=== PATIENT | female | born 1955 | race Caucasian/White ===

== ENCOUNTER 2017-11-09 15:59 | Inpatient (IN) | payer OTHER ==
[~2017-11-09] VITALS: Ht 172.7 cm; Wt 81.3 kg
[2017-11-09 16:53] LABS: BILIRUBIN,URINE NEGATIVE (NEGATIVE); CLARITY,URINE CLEAR; COLOR,URINE YELLOW; GLUCOSE, URINE (UA) NEGATIVE (NEGATIVE); KETONES,URINE NEGATIVE (NEGATIVE); LEUKOCYTE ESTERASE ,URINE NEGATIVE (NEGATIVE); NITRITE,URINE NEGATIVE (NEGATIVE); PH,URINE 7 (5-9); PROTEIN,URINE NEGATIVE (NEGATIVE); UROBILINOGEN,URINE NORMAL (NORMAL)
--- NOTE | 2017-11-09 17:40 | ED Abdominal Pain ---
General Chief Complaint: Abdominal/GI Problems Stated Complaint: ABD AND LOWER BACK PAIN Nursing Triage Note: Pt c/o intermittent abd pain starting this morning. Sepsis Screen: No Definite Risk Source of Information: Patient, Family Exam Limitations: No Limitations (ASUNCION LEMOS) History of Present Illness Date Seen by Provider: Nov 09, 2017 Time Seen by Provider: 17:23 Initial Comments Patient presents to ER by private conveyance with chief complaint this afternoon she began to experience a colicky off-again on-again sharp 7-8 out of 10 and then 0-10 abdominal pain started in her mid epigastric region and radiated all around both sides. She has had a normal formed bowel movement today no dysuria. No nausea reflux or GERD. She does have her gallbladder out as well as hysterectomy and she says that occasionally she eats meat or a lot of fat that she will have some loose stools. She said earlier distraught a pain started she had some rumbling in her stomach and some belching and she felt like she had to have a large bowel movement but was not diarrhea and there is no blood in it. No recent trauma to the abdomen or recent surgeries. She's had no fevers chills cough or shortness of breath or chest pain. She has not taken anything for the pain. She says it comes and goes and lasts a few minutes 10-15 of time. 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 Since 2013 when she moved town she has not had any major issue so she has not sought a primary care doctor and has not checked her blood pressure since. (ASUNCION LEMOS) Allergies and Home Medications Allergies Coded Allergies: No Known Drug Allergies (Unverified , 11/09/17) Patient Home Medication List Home Medication List Reviewed: Yes (ASUNCION LEMOS) Review of Systems Review of Systems Constitutional: No chills, No diaphoresis EENTM: No Blurred Vision, No Double Vision Respiratory: Denies Cough, Denies Shortness of Air Cardiovascular: Denies Chest Pain, Denies Lightheadedness Gastrointestinal: See HPI; Denies Abdomen Distended; Abdominal Pain; Denies Blood Streaked Stools, Denies Constipated, Denies Diarrhea, Denies Nausea Genitourinary: Denies Burning, Denies Discharge Musculoskeletal: No back pain, No joint pain Skin: No pruritus, No rash Psychiatric/Neurological: Denies Headache, Denies Numbness (ASUNCION LEMOS) Past Gkouwjy-Pqddca-Jpuyjg Hx Patient Social History Alcohol Use: Denies Use Recreational Drug Use: No Smoking Status: Never a Smoker Recent Foreign Travel: No Contact w/Someone Who Travel: No Recent Infectious Disease Expo: No Recent Hopitalizations: No (ASUNCION LEMOS) Seasonal Allergies Seasonal Allergies: No (ASUNCION LEMOS) Past Medical History Surgeries: Yes Gallbladder, Hysterectomy Respiratory: No Cardiac: No Neurological: No Genitourinary: No Gastrointestinal: No Musculoskeletal: No Endocrine: No HEENT: No Cancer: No Psychosocial: No Integumentary: No Blood Disorders: No (ASUNCION LEMOS) Physical Exam Vital Signs Vital Signs - First Documented 11/09/17 16:48 Temp 97.6 Pulse 83 Resp 18 B/P (MAP) 228/112 (150) Pulse Ox 99 O2 Delivery Room Air (ROSALINDA BUSH) Vital Signs Capillary Refill : Less Than 3 Seconds (ASUNCION LEMOS) Height/Weight/BMI Height: 5'8.00" Weight: 170lbs. oz. 77.256022po; BMI Method:Stated General Appearance: WD/WN, no apparent distress HEENT: PERRL/EOMI, pharynx normal Respiratory: lungs clear, normal breath sounds, no respiratory distress, no accessory muscle use Cardiovascular: normal peripheral pulses, regular rate, rhythm, no edema Peripheral Pulses: 2+ Radial Pulses (R), 2+ Radial Pulses (L) Gastrointestinal: normal bowel sounds, non tender, soft, no organomegaly; No rebound; other (modest sized umbilical hernia without any abdominal contents palpable) Extremities: normal range of motion, normal capillary refill Neurologic/Psychiatric: alert, normal mood/affect, oriented x 3 Skin: normal color, warm/dry (ASUNCION LEMOS) Focused Exam Lactate Level 11/09/17 17:33: Lactic Acid Level 0.96 (ROSALINDA BUSH) Lactic Acid Level Laboratory Tests Test 11/09/17 17:33 Lactic Acid Level 0.96 MMOL/L (0.50-2.00) (ROSALINDA BUSH) Progress/Results/Core Measures Results/Orders Lab Results Laboratory Tests Test 11/09/17 16:42 11/09/17 17:05 11/09/17 17:33 Range/Units Urine Color YELLOW Urine Clarity CLEAR Urine pH 7 5-9 Urine Specific Hiram 1.010 L 1.016-1.022 Urine Protein NEGATIVE NEGATIVE Urine Glucose (UA) NEGATIVE NEGATIVE Urine Ketones NEGATIVE NEGATIVE Urine Nitrite NEGATIVE NEGATIVE Urine Bilirubin NEGATIVE NEGATIVE Urine Urobilinogen NORMAL NORMAL MG/DL Urine Leukocyte Esterase NEGATIVE NEGATIVE Urine RBC (Auto) 3+ H NEGATIVE Urine RBC 5-10 H /HPF Urine WBC NONE /HPF Urine Crystals NONE /LPF Urine Bacteria NONE /HPF Urine Casts NONE /LPF Urine Mucus NEGATIVE /LPF Urine Culture Indicated NO White Blood Count 8.2 4.3-11.0 10^3/uL Red Blood Count 5.57 4.35-5.85 10^6/uL Hemoglobin 16.3 H 11.5-16.0 G/DL Hematocrit 47 35-52 % Mean Corpuscular Volume 84 80-99 FL Mean Corpuscular Hemoglobin 29 25-34 PG Mean Corpuscular Hemoglobin Concent 35 32-36 G/DL Red Cell Distribution Width 14.6 H 10.0-14.5 % Platelet Count 225 130-400 10^3/uL Mean Platelet Volume 11.2 H 7.4-10.4 FL Neutrophils (%) (Auto) 72 42-75 % Lymphocytes (%) (Auto) 20 12-44 % Monocytes (%) (Auto) 6 0-12 % Eosinophils (%) (Auto) 2 0-10 % Basophils (%) (Auto) 0 0-10 % Neutrophils # (Auto) 5.9 1.8-7.8 X 10^3 Lymphocytes # (Auto) 1.7 1.0-4.0 X 10^3 Monocytes # (Auto) 0.5 0.0-1.0 X 10^3 Eosinophils # (Auto) 0.1 0.0-0.3 10^3/uL Basophils # (Auto) 0.0 0.0-0.1 10^3/uL Sodium Level 141 135-145 MMOL/L Potassium Level 3.9 3.6-5.0 MMOL/L Chloride Level 106 98-107 MMOL/L Carbon Dioxide Level 26 21-32 MMOL/L Anion Gap 9 5-14 MMOL/L Blood Urea Nitrogen 15 7-18 MG/DL Creatinine 0.99 0.60-1.30 MG/DL Estimat Glomerular Filtration Rate 57 BUN/Creatinine Ratio 15 Glucose Level 112 H 70-105 MG/DL Calcium Level 10.0 8.5-10.1 MG/DL Corrected Calcium 9.6 8.5-10.1 MG/DL Total Bilirubin 0.9 0.1-1.0 MG/DL Aspartate Amino Transf (AST/SGOT) 19 5-34 U/L Alanine Aminotransferase (ALT/SGPT) 10 0-55 U/L Alkaline Phosphatase 60 40-136 U/L Total Protein 7.8 6.4-8.2 GM/DL Albumin 4.5 3.2-4.5 GM/DL Lipase 5 L 8-78 U/L Lactic Acid Level 0.96 0.50-2.00 MMOL/L (ROSALINDA BUSH) My Orders Orders - ROSALINDA BUSH Ua Culture If Indicated (11/09/17 16:48) Fentanyl Injection (Sublimaze Injection (11/09/17 20:30) (ROSALINDA BUSH) Medications Given in ED Current Medications Medications Dose Ordered Sig/Danae Route Start Time Stop Time Status Last Admin Dose Admin Fentanyl Citrate 50 mcg ONCE ONCE IVP 11/09/17 20:30 11/09/17 20:31 DC 11/09/17 20:50 50 MCG (ROSALINDA BUSH) Vital Signs/I&O 11/09/17 16:48 Temp 97.6 Pulse 83 Resp 18 B/P (MAP) 228/112 (150) Pulse Ox 99 O2 Delivery Room Air (ROSALINDA BUSH) Blood Pressure Mean: 150 Progress Progress Note #1: Time: 17:39 Progress Note After observing her resting her blood pressures come down from over 200 systolic to 175 systolic. Prior to giving her any medication we are going to get a lactate and CT of the abdomen pelvis to rule out ischemia as well as a without contrast since she has some blood in her urine and colicky pain is nonspecific. She does not have any other symptoms of a kidney stone but clinical exam is not very revealing. Progress Note #2: Time: 19:32 Progress Note Discussed case lab imaging with Rosalinda Bush, nurse practitioner and he will assume care of the case. At this time we are looking for results of CT imaging for possible enterocolitis. Also discussed her blood pressure and if it still elevated it would be reasonable to attempt starting her on medicine for chlorothiazide 12 Mg daily with follow-up next week or 2 with a primary care doctor. (ASUNCION LEMOS) Progress Note : Progress Note 1999: I have seen and evaluated the patient. I have discussed case with Dr. Doherty and he recommends admission to his services with an NG tube, IV fluids, pain medication and nothing by mouth status. I did inform the patient of this. She is refusing the NG tube at this time. She agreed with plans for admission. Medication was ordered for hypertension. (ROSALINDA BUSH) Diagnostic Imaging Diagonstic Imaging: CT (with and without contrast) Plain Films/CT/US/NM/MRI: abdomen, pelvis Comments VIA [facility]. [place], [place] NAME: ELEN [facility]BY [facility] REC#: [id number] PT STATUS: REG ER : 1955 PHYSICIAN: ASUNCION LEMOS MD ADMIT DATE: 11/09/17/ER Draft Date of Exam:11/09/17 CT ABDOMEN/PELVIS WO PROCEDURE: CT abdomen and pelvis without contrast. TECHNIQUE: Multiple contiguous axial images were obtained through the abdomen and pelvis without the use of intravenous contrast. DATE: November 09, 2017. COMPARISON: None. INDICATION: 62-year-old female, mid abdominal pain radiating into the right. FINDINGS: There are limitations for evaluation of the abdominal organs, neoplastic processes, abscess, and limited evaluation of the vasculature relating to the lack of intravenous contrast. There is a 4 mm calcified right lower lobe granuloma. The additional visualized portions of the lung bases are clear. The heart is not enlarged. There is no pericardial effusion. The liver is normal in size and contour. The patient is status post cholecystectomy. There is no intrahepatic or extrahepatic bile duct dilation. The main pancreatic duct is not abnormally dilated. Noncontrast evaluation of the pancreatic parenchyma is unremarkable. There are small splenic calcifications which may relate to sequela of prior granulomatous disease. There is a small accessory splenule on axial image 32. The spleen is not enlarged. The adrenal glands are unremarkable. Unremarkable appearance of the renal parenchyma. The urinary collecting systems are not distended. There is no identified renal or ureteral stone. The urinary bladder is unremarkable in appearance. Uterus is not seen and may be surgically absent. There is fatty wall thickening of the transverse colon which may relate to a chronic colitis. The stomach is very mildly distended. There are abnormally dilated fluid-filled segments of small bowel measuring up to approximately 3.5 cm in diameter. There are segments of normal caliber distal ileum. There is fecalization of the contents within the small bowel compatible with slow intestinal transit. Findings are concerning for a distal small bowel obstruction. The exact transition point is difficult to identify. There is no pneumatosis. There is no free intraperineal air. There is no drainable fluid collection. There is a small amount of free pelvic fluid. There is no identified abnormally enlarged lymph node within the abdomen or pelvis which meets CT size criteria for adenopathy. There is no identified acute bony abnormality. IMPRESSION: CT ABDOMEN AND PELVIS. 1. Abnormally dilated small bowel segments concerning for a distal small bowel obstruction without clearly visualized transition point. 2. No pneumatosis, free intraperitoneal air, or drainable fluid collection. 3. Small volume free pelvic fluid. Dictated on workstation # [id number] Dict: 11/09/171922 Trans: 11/09/17 1936 ASIA [id number] Interpreted by: MADHAV BULL MD Electronically signed by: Reviewed: Reviewed by Me (ASUNCION LEMOS) Transfer of Care Time: 19:30 Care transferred to: Rosalinda Bush (ASUNCION LEMOS) Departure Communication (Admissions) Time/Spoke to Admitting Phy: 20:[address] Doherty at this time. He recommended NG tube and pain medication and IV fluids and admission to his services on the floor. (ROSALINDA BUSH) Impression Primary Impression: Bowel obstruction Qualified Codes: K56.609 - Unspecified intestinal obstruction, unspecified as to partial versus complete obstruction Disposition: ADMITTED INPATIENT Condition: Stable Admissions Decision to Admit Reason: Admit from ER (General) Decision to Admit/Date: Nov 09, 2017 Time/Decision to Admit Time: 20:46 (ROSALINDA BUSH) Departure-Patient Inst. Referrals: NO,LOCAL PHYSICIAN (PCP/Family) Primary Care Physician ASUNCION LEMOS Nov 09, 2017 17:40 ROSALINDA BUSH Nov 09, 2017 20:50
[2017-11-09 17:45] LABS: BASOPHILS % (AUTO) 0 % (0-10); EOSINOPHILS # (AUTO) 0.1 10^3/uL (0.0-0.3); EOSINOPHILS % (AUTO) 2 % (0-10); HEMATOCRIT 47 % (35-52); HEMOGLOBIN 16.3 G/DL (11.5-16.0); LYMPHOCYTES # (AUTO) 1.7 X 10^3 (1.0-4.0); LYMPHOCYTES % (AUTO) 20 % (12-44); MEAN CORPUSCULAR HEMOGLOBIN 29 PG (25-34); MEAN CORPUSCULAR HGB CONC 35 G/DL (32-36); MEAN CORPUSCULAR VOLUME 84 FL (80-99); MEAN PLATELET VOLUME 11.2 FL (7.4-10.4); MONOCYTES # (AUTO) 0.5 X 10^3 (0.0-1.0); MONOCYTES % (AUTO) 6 % (0-12); NEUTROPHILS # (AUTO) 5.9 X 10^3 (1.8-7.8); NEUTROPHILS % (AUTO) 72 % (42-75); PLATELET COUNT 225 10^3/uL (130-400); RED BLOOD COUNT 5.57 10^6/uL (4.35-5.85); RED CELL DISTRIBUTION WIDTH 14.6 % (10.0-14.5); WHITE BLOOD COUNT 8.2 10^3/uL (4.3-11.0)
[2017-11-09 18:07] LABS: ALBUMIN 4.5 GM/DL (3.2-4.5); BILIRUBIN,TOTAL 0.9 MG/DL (0.1-1.0); CREATININE SERUM 0.99 MG/DL (0.60-1.30); POTASSIUM 3.9 MMOL/L (3.6-5.0); TOTAL PROTEIN 7.8 GM/DL (6.4-8.2)
--- NOTE | 2017-11-09 19:37 | Diagnostic Imaging Report ---
PROCEDURE: CT abdomen and pelvis without contrast. TECHNIQUE: Multiple contiguous axial images were obtained through the abdomen and pelvis without the use of intravenous contrast. DATE: November 09, 2017. COMPARISON: None. INDICATION: 62-year-old female, mid abdominal pain radiating into the right. FINDINGS: There are limitations for evaluation of the abdominal organs, neoplastic processes, abscess, and limited evaluation of the vasculature relating to the lack of intravenous contrast. There is a 4 mm calcified right lower lobe granuloma. The additional visualized portions of the lung bases are clear. The heart is not enlarged. There is no pericardial effusion. The liver is normal in size and contour. The patient is status post cholecystectomy. There is no intrahepatic or extrahepatic bile duct dilation. The main pancreatic duct is not abnormally dilated. Noncontrast evaluation of the pancreatic parenchyma is unremarkable. There are small splenic calcifications which may relate to sequela of prior granulomatous disease. There is a small accessory splenule on axial image 32. The spleen is not enlarged. The adrenal glands are unremarkable. Unremarkable appearance of the renal parenchyma. The urinary collecting systems are not distended. There is no identified renal or ureteral stone. The urinary bladder is unremarkable in appearance. Uterus is not seen and may be surgically absent. There is fatty wall thickening of the transverse colon which may relate to a chronic colitis. The stomach is very mildly distended. There are abnormally dilated fluid-filled segments of small bowel measuring up to approximately 3.5 cm in diameter. There are segments of normal caliber distal ileum. There is fecalization of the contents within the small bowel compatible with slow intestinal transit. Findings are concerning for a distal small bowel obstruction. The exact transition point is difficult to identify. There is no pneumatosis. There is no free intraperineal air. There is no drainable fluid collection. There is a small amount of free pelvic fluid. There is no identified abnormally enlarged lymph node within the abdomen or pelvis which meets CT size criteria for adenopathy. There is no identified acute bony abnormality. IMPRESSION: CT ABDOMEN AND PELVIS. 1. Abnormally dilated small bowel segments concerning for a distal small bowel obstruction without clearly visualized transition point. 2. No pneumatosis, free intraperitoneal air, or drainable fluid collection. 3. Small volume free pelvic fluid. Dictated by: Dictated on workstation # [id number]
[2017-11-09] MEDS ORDERED: fentaNYL INJECTION 100 MCG/2 ML AMP IVP ONE (20:30)
[2017-11-09] MEDS ORDERED: cloNIDine 0.2 MG (CATAPRES) TAB PO ONE (21:15)
[2017-11-09 21:35] VITALS: BP 161/84
[2017-11-09] MEDS ORDERED: fentaNYL INJECTION 100 MCG/2 ML AMP IV PRN (22:00)
[2017-11-09] MEDS ORDERED: ONDANSETRON 4 MG/2 ML (SDV) Z0FRAN IV PRN (22:00)
[2017-11-09] MEDS: NS IV 1000 ML 1,000 ML IV SCH (22:18)
[2017-11-10] VITALS: BP 157/90
[2017-11-10 04:05] VITALS: BP 168/67
[2017-11-10] MEDS: NS IV 1000 ML 1,000 ML IV SCH ×3 (04:58→22:21)
[2017-11-10 05:48] LABS: BASOPHILS % (AUTO) 0 % (0-10); EOSINOPHILS # (AUTO) 0.3 10^3/uL (0.0-0.3); EOSINOPHILS % (AUTO) 4 % (0-10); HEMATOCRIT 40 % (35-52); HEMOGLOBIN 13.4 G/DL (11.5-16.0); LYMPHOCYTES # (AUTO) 1.2 X 10^3 (1.0-4.0); LYMPHOCYTES % (AUTO) 17 % (12-44); MEAN CORPUSCULAR HEMOGLOBIN 29 PG (25-34); MEAN CORPUSCULAR HGB CONC 34 G/DL (32-36); MEAN CORPUSCULAR VOLUME 86 FL (80-99); MEAN PLATELET VOLUME 10.8 FL (7.4-10.4); MONOCYTES # (AUTO) 0.6 X 10^3 (0.0-1.0); MONOCYTES % (AUTO) 8 % (0-12); NEUTROPHILS # (AUTO) 4.7 X 10^3 (1.8-7.8); NEUTROPHILS % (AUTO) 70 % (42-75); PLATELET COUNT 202 10^3/uL (130-400); RED BLOOD COUNT 4.62 10^6/uL (4.35-5.85); RED CELL DISTRIBUTION WIDTH 14.4 % (10.0-14.5); WHITE BLOOD COUNT 6.8 10^3/uL (4.3-11.0)
[2017-11-10 06:12] LABS: ALANINE AMINOTRANSFERASE 11 U/L (0-55); ALBUMIN 3.5 GM/DL (3.2-4.5); ALKALINE PHOSPHATASE 49 U/L (40-136); BILIRUBIN,TOTAL 0.9 MG/DL (0.1-1.0); BUN/CREATININE RATIO 19; CALCIUM 8.5 MG/DL (8.5-10.1); CARBON DIOXIDE 19 MMOL/L (21-32); CHLORIDE 114 MMOL/L (98-107); CREATININE SERUM 0.79 MG/DL (0.60-1.30); GFR ESTIMATED > 60; GLUCOSE 103 MG/DL (70-105); POTASSIUM 4.2 MMOL/L (3.6-5.0); SODIUM 141 MMOL/L (135-145); TOTAL PROTEIN 5.7 GM/DL (6.4-8.2)
[2017-11-10 08:00] VITALS: BP 120/68
--- NOTE | 2017-11-10 10:25 | History & Physicial ---
History of Present Illness History of Present Illness Reason for visit/HPI Ongoing abdominal pain and postcholecystectomy diarrhea, with increased severity over the last [address] scan was suggestive of thickened transverse colon and slight dilatation of the small bowel. She reports a family history of polyps in her mother and has not undergone screening colonoscopy in her lifetime. Date of Admission Nov 09, 2017 at 20:30 Date Seen by Provider: Nov 10, 2017 Time Seen by Provider: 07:55 I consulted on this patient on 11/10/17 10:22 Attending Physician Justina Lagos MD Admitting Physician Zena,Local Physician Consult Allergies and Home Medications Allergies Coded Allergies: No Known Drug Allergies (Unverified , 11/09/17) Patient Home Medication List Home Medication List Reviewed: Yes Past Qjhwbjt-Mkqizk-Ejqbcn Hx Patient Social History Marrital Status: Employed/Student: self-employed Alcohol Use: Denies Use Recreational Drug Use: No Smoking Status: Former Smoker Former Smoker, Quit: Mar 01, 1988 Type Used: Cigarettes Physical Abuse Screen: No Sexual Abuse: No Recent Foreign Travel: No Contact w/other who traveled: No Recent Hopitalizations: No Recent Infectious Disease Expo: No Immunizations Up To Date Pediatric: No Seasonal Allergies Seasonal Allergies: Yes Surgeries Yes (wisdom teeth) Gallbladder, Hysterectomy Respiratory No Cardiovascular No Neurological No Reproductive System Sexually Transmitted Disease: No HIV/AIDS: No Female Reproductive Disorders: Denies Genitourinary No Gastrointestinal Yes (current admission) Obstructive Bowel Musculoskeletal No Endocrine History of Endocrine Disorders: No HEENT History of HEENT Disorders: No Loss of Vision: Denies Hearing Impairment: Denies Cancer No Psychosocial History of Psychiatric Problem: No Integumentary History of Skin or Integumenta: No Blood Transfusions History of Blood Disorders: No Adverse Reaction to a Blood Tr: No Review of Systems Constitutional: no symptoms reported EENTM: no symptoms reported Respiratory: no symptoms reported Cardiovascular: no symptoms reported Gastrointestinal: see HPI Genitourinary: no symptoms reported Musculoskeletal: no symptoms reported Skin: no symptoms reported Psychiatric/Neurological: No Symptoms Reported Physical Exam Vital Signs Vital Signs - First Documented 11/09/17 16:48 Temp 97.6 Pulse 83 Resp 18 B/P (MAP) 228/112 (150) Pulse Ox 99 O2 Delivery Room Air Capillary Refill : Less Than 3 Seconds Height, Weight, BMI Height: 5'8.00" Weight: 179lbs. 5.0oz. 81.483614wj; 27.3 BMI Method:Stated General Appearance: No Apparent Distress Neck: Normal Inspection Respiratory: Lungs Clear Cardiovascular: Regular Rate, Rhythm Gastrointestinal: Non Tender, Soft Rectal: Deferred Extremity: Normal Inspection Neurologic/Psychiatric: Alert, Oriented x3 Skin: Warm/Dry Assessment/Plan Assessment and Plan lady with postcholecystectomy diarrhea. History of colon polyps. Abnormal CT showing thickening of the transverse colon. Light outpatient of small bowel. Reasonable to initiate bowel preparation and perform colonoscopy. Discussed in detail and provisionally scheduled for tomorrow Admission Diagnosis Admission Status: Inpatient Order (span 2 midnights) Reason for Inpatient Admission: evaluation and management requiring at least 2 nights of care Clinical Quality Measures DVT/VTE Risk/Contraindication: Risk Factor Score Per Nursin RFS Level Per Nursing on Admit: 2=Moderate JUSTINA LAGOS MD Nov 10, 2017 10:25
[2017-11-10] MEDS ORDERED: MAGNESIUM CITRATE 300 ML BTL PO NR ×2 (10:30→16:30)
[2017-11-10] MEDS ORDERED: LACT1CAP74 PO (10:44)
[2017-11-10] MEDS ORDERED: MILK175C4 PO (10:44)
[2017-11-10] MEDS ORDERED: TURM538C PO (10:44)
[2017-11-10] MEDS ORDERED: CRAN450C PO (10:44)
[2017-11-10 12:00] VITALS: BP 160/77
[2017-11-10 16:31] VITALS: BP 148/78
[2017-11-10 20:35] VITALS: BP 145/74
[2017-11-11] VITALS: BP 144/76
[2017-11-11 04:00] VITALS: BP 146/74
[2017-11-11] MEDS: NS IV 1000 ML 1,000 ML IV SCH ×3 (05:04→11:36)
[2017-11-11 08:56] VITALS: BP 176/80
[2017-11-11] MEDS ORDERED: proPOfol 200 MG/20 ML (DIPRIVAN) VIAL IV ONE (09:40)
[2017-11-11] MEDS ORDERED: MIDAZOLAM 2 MG/2 ML (VERSED) VIAL ONE (09:40)
--- NOTE | 2017-11-11 10:02 | Endo Procedure Record ---
Endo Procedure Report Date of Procedure Last Colonoscopy: No Nov 11, 2017 Surgeon (s) JUSTINA LAGOS MD Post Procedure/Op Diagnosis normal colonoscopy Procedure Performed colonoscopy to cecum Description of Procedure Anesthesia Type: Conscious Sedation Specimen(s) collected/removed none Description of the Procedure Indication for the procedure: This lady has been admitted with central abdominal pain, which has since resolved. CT scan showed slight thickening of the transverse colon of unknown significance. In addition, she has a family history of polyps and has never undergone screening colonoscopy. Therefore, it was felt reasonable to perform colonoscopy. Informed consent was obtained after reviewing the procedure in detail. Description of procedure: She was placed in left lateral decubitus position and her vital signs were monitored. Conscious sedation was achieved using propofol infusion by our [employer]. Digital rectal examination was unremarkable. The colonoscope was then introduced, and advanced all the way up to the cecum The quality of bowel preparation was excellent. The scope was then withdrawn slowly and the mucosa examined in systematic fashion. There was no abnormality She tolerated procedure well and was taken back to the nursing area in a stable condition. Impression: Resolved central abdominal pain. Family history of polyps. Normal colonoscopy. Recommend screening examination in 5 years. Copy Copies To 1: VIRI CHANDLER MD, XAVIER M MD Nov 11, 2017 10:02
--- NOTE | 2017-11-11 10:03 | Discharge Inst-Simple/Standard ---
Discharge Inst-Standard Discharge Medications New, Converted or Re-Newed RX: Other Patient Instructions/Follow Up Plan of Care/Instructions/FU: to establish primary care as soon as possible and have her blood pressure addressed. Activity as Tolerated: Yes Discharge Diet: No Restrictions JUSTINA LAGOS MD Nov 11, 2017 10:03
[2017-11-11 12:00] VITALS: BP 152/75
[2017-11-11 12:55] VITALS: BP 152/75
--- NOTE | 2017-11-11 14:09 | Anesthesia-General Post-Op ---
MAC Patient Condition Mental Status/LOC: Same as Preop Cardiovascular: Satisfactory Nausea/Vomiting: Absent Respiratory: Satisfactory Pain: Controlled Complications: Absent Post Op Complications Complications None Follow Up Care/Instructions Patient Instructions None needed. Anesthesiology Discharge Order Discharge Order Patient is doing well, no complaints, stable vital signs, no apparent adverse anesthesia problems. No complications reported per nursing. IDALIA POWELL CRNA Nov 11, 2017 14:09
[2017-11-11] MEDS ORDERED: BISACODYL 5 MG (DULCOLAX) TABLET PO SCH (19:00)
--- NOTE | 2017-11-16 10:43 | Physician Query-Final Dx ---
SHEMAR MUIR 11/16/17 1043: Final Diagnosis Give Final Diagnosis Please give Final Diagnosis JUSTINA LAGOS MD 11/16/17 1219: Final Diagnosis Give Final Diagnosis 1. Abnormal CT scan showing thickening of transverse colon. 2. Family history of polyps SHEMAR MUIR Nov 16, 2017 10:43 JUSTINA LAGOS MD Nov 16, 2017 12:19
--- NOTE | 2017-11-18 23:31 | Physician Query Clarification ---
PQ-Intro New Diagnosis Admission/Discharge Admission Date: Nov 09, 2017 at 20:30 Discharge Date: Nov 11, 2017 at 12:55 The medical record reflects the following clinical scenario: History/Risk Factors: epigastric pain, diarrhea] Clinical Findings: thickening of colon on CT, normal colonoscopy Treatment: IV fluids Question: Patient came in with abdominal pain and diarrhea and thickening of colon was seen on CT, was an etiology for the abdominal pain/diarrhea determined ? Please specify below: 1. Thickening of colon felt to be the cause of diarrhea/abdominal pain 2. Thickening of colon was a diagnostic finding only, not indicative of a cause of diarrhea/abdominal pain 3. Other, with explanation of the clinical findings. PHYSICIAN RESPONSE What condition reflects above: 2 In responding to this query, please exercise your independent professional judgment. The purpose of this communication is to more accurately reflect the complexity of your patients condition. The fact that a question is asked does not imply that any particular answer is desired or expected. Thank you for your timely response to this clarification. Requestors name: [ ] Phone # [ ] THIS PHYSICIAN QUERY FORM IS A PERMANENT PART OF THE MEDICAL RECORD ASHLEY KRAUS Nov 18, 2017 23:31 JUSTINA LAGOS MD Nov 19, 2017 10:14
== END 2017-11-11 12:55 | disposition home or self-care (01) | DRG 392 ==
LOC: EDUNIT# 15:59 → ER 16:00 → UNDOADMOB 20:30 → 4TH 20:30 → INTOOBSV 21:35 → OBSVTOIN 21:35 → UNDODISIN 11-11 12:55
PROVIDERS: ADMIT Surgery; ATTEND Surgery
PROC: 0DJD8ZZ Inspection of Lower Intestinal Tract, Via Natural or Artificial Opening Endoscopic (ICD-10-PCS; principal; 2017-11-11 09:28)
DX: R10.13 Epigastric pain (principal); R19.7 Diarrhea, unspecified; R93.5 Abnormal findings on diagnostic imaging of other abdominal regions, including retroperitoneum; Z83.71 Family history of colonic polyps; Z87.891 Personal history of nicotine dependence
CPT/HCPCS: 36415; 74176; 80053; 81000; 83605; 83690; 85025; 87081; 96374